=== PATIENT | female | born 1965 | race Two or more races ===

== ENCOUNTER 2021-04-28 09:17 | Emergency (ER) | payer OTHER ==
[~2021-04-28] VITALS: Ht 165.1 cm; Wt 79.4 kg
[2021-04-28] MEDS ORDERED: ORTHO DF 3,7751 EACH (09:25)
[2021-04-28] MEDS ORDERED: COZAAR50 MG (09:25)
[2021-04-28] MEDS ORDERED: NORFLEX100MG PO (11:18)
[2021-04-28] MEDS ORDERED: KETO10TA2 PO (11:18)
== END 2021-04-28 11:28 | disposition home or self-care (01) ==
LOC: ER 09:17
DX: M25.562 Pain in left knee (principal)